=== PATIENT | male | born 2000 | race African-American/Black ===

== ENCOUNTER 2021-02-17 14:59 | Emergency (ER) | payer OTHER, BC, SELFPAY ==
[~2021-02-17] VITALS: Ht 157.5 cm; Wt 65.8 kg
--- NOTE | 2021-02-17 15:12 | NUR ---
Patient to ER bed tent 1 to gown for evaluation. Side rails up.
[2021-02-17 15:13] VITALS: BP_SYST 111
--- NOTE | 2021-02-17 15:15 | NUR ---
Pt brought by self, A&Ox 4 , pt presents to ER with runny nose/ congestion and neck pain, afebrile, skin pink and warm, cap refill <3.
--- NOTE | 2021-02-17 15:20 | NUR ---
Dr. Jaime to tent to [place].
[2021-02-17] MEDS ORDERED: ALBMDI INH (17:28)
[2021-02-17] MEDS ORDERED: PRED20TA PO (17:28)
[2021-02-17] MEDS ORDERED: IBUP-1971 PO (17:28)
[2021-02-17 17:35] VITALS: BP_SYST 111
--- NOTE | 2021-02-17 17:35 | NUR ---
Patient given written and verbal discharge instructions and verbalizes understanding. Dr. Addison KOVACS MD discussed with patient the results and treatment provided. Patient in stable condition. ID arm band removed. IV catheter removed intact and dressing applied, no active bleeding. Rx per Dr. Jaime. Patient educated on pain management and to follow up with PMD. Pain Scale 0/10. Opportunity for questions provided and answered. Medication side effect fact sheet provided.
== END 2021-02-17 17:35 | disposition home or self-care (01) ==
LOC: SED 14:59 → EDSEX 14:59 → SED 17:35
DX: J40 Bronchitis, not specified as acute or chronic (principal); Z20.822 Contact with and (suspected) exposure to COVID-19; Z79.899 Other long term (current) drug therapy
CPT/HCPCS: 36415; 71045; 99284

== ENCOUNTER 2021-02-21 12:22 | Emergency (ER) | payer OTHER, BC, SELFPAY ==
[~2021-02-21] VITALS: Ht 154.9 cm; Wt 58.1 kg
[~2021-02-21 12:22] MED LIST: ALBMDI INH; IBUP-1971 PO; PRED20TA PO
[2021-02-21 12:40] VITALS: BP_SYST 129
[2021-02-21] MEDS ORDERED: BENZ-16 PO (12:54)
[2021-02-21] MEDS ORDERED: HYDR120S7 PO ×5 (12:54→20:15)
[2021-02-21 13:05] VITALS: BP_SYST 129
== END 2021-02-21 13:05 | disposition home or self-care (01) ==
LOC: SED 12:22
DX: J06.9 Acute upper respiratory infection, unspecified (principal); Z79.899 Other long term (current) drug therapy
CPT/HCPCS: 99283

== ENCOUNTER 2022-02-20 12:04 | Emergency (ER) | payer OTHER, BC ==
[~2022-02-20] VITALS: Ht 167.6 cm; Wt 65.8 kg
[~2022-02-20 12:04] MED LIST changes: +BENZ-16 PO; +HYDR-3917 PO; +HYDR120S7 PO
--- NOTE | 2022-02-20 12:13 | NUR ---
Patient to ER bed 08 to gown for evaluation. Side rails up.
[2022-02-20 12:19] VITALS: BP_SYST 115
--- NOTE | 2022-02-20 12:40 | NUR ---
COVID SWAB OBTAINED AND SENT TO LAB.
--- NOTE | 2022-02-20 12:40 | NUR ---
PT bib self from home CC hemoptysis. Pt c/o headache pressure, nausea no episode of vomiting, pt appears with nasal congestion denies allergies. Pt states onset of symptoms occurred on Saturday02/16/22. Throat is sore with productive cough phlegm green with spots of blood. Pt is aaox4, denies SOB. No past med. hx.
--- NOTE | 2022-02-20 12:45 | NUR ---
ER at bedside examining patient.
[2022-02-20] MEDS ORDERED: D-ME118S48 PO (13:00)
[2022-02-20] MEDS ORDERED: ZIT250 PO (13:00)
[2022-02-20 13:15] VITALS: BP_SYST 115
--- NOTE | 2022-02-20 13:35 | NUR ---
Patient given written and verbal discharge instructions and verbalizes understanding. ER MD discussed with patient the results and treatment provided. Patient in stable condition. ID arm band removed. Opportunity for questions provided and answered. Medication side effect fact sheet provided.
== END 2022-02-20 13:15 | disposition home or self-care (01) ==
LOC: SED 12:04
DX: J06.9 Acute upper respiratory infection, unspecified (principal); R05.9 Cough, unspecified; R09.81 Nasal congestion; Z79.899 Other long term (current) drug therapy; Z20.822 Contact with and (suspected) exposure to COVID-19
CPT/HCPCS: 36415; 71045; 99284

== ENCOUNTER 2022-03-08 13:51 | Emergency (ER) | payer OTHER, BC ==
[~2022-03-08] VITALS: Ht 167.6 cm; Wt 65.8 kg
[~2022-03-08 13:51] MED LIST changes: +D-ME118S48 PO; +ZIT250 PO
[2022-03-08 14:05] VITALS: BP_SYST 120
--- NOTE | 2022-03-08 14:20 | NUR ---
Pt bib self to ER. CC congestion and nasal drip. Pt states sinus cavities creating pressure, productive cough yellow phlegm. slight headache, diarrhea x1 day. Pt states congestion is recurrent. Denies smoking, denies SOB, denies chestwall pain. Skin intact, aaox3.
--- NOTE | 2022-03-08 15:29 | NUR ---
ER at bedside examining patient.
[2022-03-08] MEDS ORDERED: FLUT16SP16 NS (15:31)
[2022-03-08] MEDS ORDERED: CETI10CA11 PO (15:31)
--- NOTE | 2022-03-08 16:00 | NUR ---
Patient given written and verbal discharge instructions and verbalizes understanding. ER MD discussed with patient the results and treatment provided. Patient in stable condition. ID arm band removed. no rx GIVEN. Opportunity for questions provided and answered. Medication side effect fact sheet provided.
[2022-03-08 17:34] VITALS: BP_SYST 120
== END 2022-03-08 16:00 | disposition home or self-care (01) ==
LOC: SED 13:51
DX: R09.81 Nasal congestion (principal); R05.9 Cough, unspecified; J45.909 Unspecified asthma, uncomplicated; Z79.899 Other long term (current) drug therapy
CPT/HCPCS: 99282

== ENCOUNTER 2022-06-24 18:37 | Emergency (ER) | payer OTHER, BC ==
[~2022-06-24] VITALS: Ht 167.6 cm; Wt 63.5 kg
[~2022-06-24 18:37] MED LIST changes: +CETI10CA11 PO; +FLUT16SP16 NS
[2022-06-24 19:00] VITALS: BP_SYST 135
[2022-06-24] MEDS ORDERED: IBUPROFEN 800 MG TABLET PO ONE (19:45)
[2022-06-24] MEDS ORDERED: guaiFENesin/DEXTROMETHORPHAN 10 ML UDC PO ONE (19:45)
[2022-06-24] MEDS ORDERED: BENZONATATE 100 MG CAPSULE (TESSALON) PO ONE (19:45)
[2022-06-24] MEDS ORDERED: BENZONATATE 100 MG CAPSULE (TESSALON) ONE (20:00)
[2022-06-24] MEDS ORDERED: BENZ100C92 PO (20:58)
[2022-06-24] MEDS ORDERED: ALBMDI INH (20:58)
[2022-06-24] MEDS ORDERED: ZIT250 PO (20:58)
[2022-06-24] MEDS ORDERED: IBUP-1971 PO (20:58)
[2022-06-24] MEDS ORDERED: ONDA-8 TL (21:11)
[2022-06-24] MEDS ORDERED: ONDANSETRON 4 MG ODT TAB ONE (21:14)
[2022-06-24 21:15] VITALS: BP_SYST 113
[2022-06-24] MEDS ORDERED: ONDANSETRON 4 MG ODT TAB PO ONE (21:15)
[2022-06-25] MEDS ORDERED: GUAI100S14 PO (23:13)
== END 2022-06-24 21:15 | disposition home or self-care (01) ==
LOC: SED 18:37
DX: J40 Bronchitis, not specified as acute or chronic (principal); R50.9 Fever, unspecified; R05.9 Cough, unspecified; M79.18 Myalgia, other site; Z79.899 Other long term (current) drug therapy; Z20.822 Contact with and (suspected) exposure to COVID-19
CPT/HCPCS: 99283; 87426; 36415; 87804 ×2; Q0162

== ENCOUNTER 2022-06-25 21:01 | Emergency (ER) | payer OTHER, BC, MEDICAID ==
[~2022-06-25] VITALS: Ht 167.6 cm; Wt 66.2 kg
[~2022-06-25 21:01] MED LIST changes: +BENZ100C92 PO; +ONDA-8 TL
[2022-06-25 21:12] VITALS: BP_SYST 116
--- NOTE | 2022-06-25 22:41 | NUR ---
Patient ambulated to ER bed 2 with a steady gait.
--- NOTE | 2022-06-25 22:42 | NUR ---
Dr. Napoles at bedside examining the patient.
[2022-06-25] MEDS ORDERED: GUAI100S14 PO (23:13)
[2022-06-25 23:44] VITALS: BP_SYST 126
--- NOTE | 2022-06-25 23:44 | NUR ---
Pt C/O cough Evaluated by MD Pt DC per MD's order DC instructions given to pt Pt verbalized understsndings Pt C/O AOX4 VSS Able to make needs known Pt exited Ed in stable gait
== END 2022-06-25 23:45 | disposition home or self-care (01) ==
LOC: SED 21:01
DX: J06.9 Acute upper respiratory infection, unspecified (principal); R05.9 Cough, unspecified; R68.83 Chills (without fever); F12.90 Cannabis use, unspecified, uncomplicated; J45.909 Unspecified asthma, uncomplicated; Z79.899 Other long term (current) drug therapy
CPT/HCPCS: 71045; 99283